=== PATIENT | female | born 1975 | race Caucasian/White ===

== ENCOUNTER 2017-03-22 18:11 | Emergency (ER) | payer MEDICAID ==
[~2017-03-22] VITALS: Wt 122.5 kg
[2017-03-22 18:17] VITALS: BP 129/73
[2017-03-22] MEDS ORDERED: NAPROSYN500 MG PO (19:49)
== END 2017-03-22 20:23 | disposition home or self-care (01) ==
LOC: ED 18:11
DX: G89.29 Other chronic pain (principal); M25.561 Pain in right knee; F17.200 Nicotine dependence, unspecified, uncomplicated

== ENCOUNTER → 2017-03-31 | Outpatient (CLI) | payer MEDICAID ==
[~2017-03-31] MED LIST: NAPROSYN500 MG PO
[2017-03-31 13:41] LABS: BASO % 0.3 % (0.0-1.0); EOS # 0.4 10*3/uL (0.0-0.4); EOS % 4.1 % (1.0-4.0); HEMATOCRIT 39.8 % (37.0-47.0); HEMOGLOBIN 12.4 g/dl (12.0-16.0); LYMPH # 3.1 10*3/uL (1.3-4.4); LYMPH % 35.8 % (27.0-41.0); MEAN CELL VOLUME 94.5 fl (81.0-99.0); MEAN CORPUSCULAR HGB 29.5 pg (27.0-31.0); MEAN CORPUSCULAR HGB CONC 31.2 g/dl (33.0-37.0); MEAN PLATELET VOLUME 9.8 fl (9.6-12.3); MONO # 0.8 10*3/uL (0.1-1.0); MONO % 9.1 % (3.0-9.0); NEUT # 4.4 10*3/uL (2.3-7.9); NEUT % 50.5 % (47.0-73.0); PLATELET COUNT AUTOMATED 299 10*3/uL (130-400); RED BLOOD COUNT 4.21 10*6/uL (4.10-5.10); RED CELL DISTRI WIDTH 13.6 % (0-14.5); WHITE BLOOD COUNT 8.6 10*3/uL (4.8-10.8)
[2017-03-31 13:58] LABS: ALBUMIN 3.3 gm/dl (3.1-4.5); ALKALINE PHOSPHATASE 107 U/L (45-117); BILIRUBIN, TOTAL 0.3 mg/dl (0.2-1.0); BUN 18 mg/dl (7-24); CARBON DIOXIDE 25 mmol/L (21-32); CHLORIDE 108 mmol/L (98-107); CHOLESTEROL 159 mg/dL (<200); EST GLOM FILT AFRICAN AMERICAN > 60 ml/min; GLUCOSE 81 mg/dL (65-99); HDL CHOLESTEROL 50 mg/dl (40-60); LDL CHOLESTEROL 86 mg/dL (9-159); POTASSIUM 4.1 mmol/L (3.5-5.1); SGOT/AST 15 IU/L (3-35); SGPT/ALT 24 U/L (12-78); SODIUM 144 mmol/L (136-145); TOTAL PROTEIN 7.1 gm/dL (6.4-8.2); TRIGLYCERIDES 117 mg/dl (<150); VLDL CHOLESTEROL 23 mg/dL (6-40)
== END | disposition home or self-care (01) ==
LOC: LAB 12:56
PROVIDERS: Emergency Medicine
DX: I10 Essential (primary) hypertension (principal); E78.5 Hyperlipidemia, unspecified; M54.16 Radiculopathy, lumbar region; M79.661 Pain in right lower leg; M79.662 Pain in left lower leg; R20.0 Anesthesia of skin

== ENCOUNTER 2017-06-29 21:49 | Emergency (ER) | payer OTHER ==
[~2017-06-29] VITALS: Ht 157.4 cm; Wt 133.8 kg
[2017-06-29 21:56] VITALS: BP 181/97
[2017-06-29] MEDS ORDERED: MEDROL DOSEPAK4 MG PO (23:05)
== END 2017-06-29 23:28 | disposition home or self-care (01) ==
LOC: ED 21:49
DX: M25.511 Pain in right shoulder (principal); M54.12 Radiculopathy, cervical region; F17.200 Nicotine dependence, unspecified, uncomplicated; Z98.890 Other specified postprocedural states

== ENCOUNTER 2017-08-16 13:59 | Inpatient (IN) | payer OTHER ==
[~2017-08-16] VITALS: Ht 160 cm; Wt 130.3 kg
--- NOTE | ~2017-08-16 | PR ---
[place], [place] PROGRESS NOTE NAME: CLARIBEL GUIDRY UNIT #: [id number] ROOM: 511 DOCTOR: STEPHEN LAM MD BIRTHDATE: [birth year] DOS: 08/21/2017 SUBJECTIVE: The patient was independently seen and examined in rbug-ad-iyhy encounter today. History was confirmed. Physical examination was performed. All the available labs were reviewed. The assessment and management was personally completed for today's visit. Note done by the medical billing associate was approved. She continued to show significant reduction in respiratory symptoms of cough, wheezing and shortness of breath since last seen with current medical management, comfortably resting at this time on the bed. OBJECTIVE: VITAL SIGNS: Reviewed were noted as normal. Pulse oxygen saturation on room air was 94% saturation. LUNGS: The patient was noted without any crackles. Occasional scattered wheezing was present. ABDOMEN: Soft and obese. EXTREMITIES: Without edema. LABORATORY DATA: BMP of the patient noted essentially normal except mild elevation of glucose. CBC: WBC count 16.6, remaining CBC was normal. The ESR yesterday was noted 49. CRP mildly elevated at 0.45. ASSESSMENT: 1. The patient at this time was noted with patchy ground glass opacity of the lungs related to most likely acute infection versus etiology of ____ including interstitial pneumonia for this patient has been considered at this time. 2. New onset of acute exacerbation of chronic obstructive pulmonary disease/bronchial asthma. PLAN OF TREATMENT: The patient could be considered for home discharge on oral medication at the present time, would be advised about the office followup patient to document the resolution of the current acute respiratory complaints and abnormality, which has been seen radiologically as an outpatient. Abstinence from tobacco use was discussed. Short acting bronchodilators, longer tapering dose of prednisone starting 50 mg daily for 15 days, use of Dulera or such medication would be advised. [place], [place] PROGRESS NOTE NAME: CLARIBEL GUIDRY UNIT #: [id number] ROOM: 511 DOCTOR: STEPHEN LAM MD BIRTHDATE: [birth year] STEPHEN TENA MD CM:PNTRANS [id number] STEPHEN PARADA MD 08/21/17 2334 interface
--- NOTE | ~2017-08-16 | CON ---
[place], [place] REPORT OF CONSULTATION NAME: CLARIBEL GUIDRY UNIT #: [id number] ROOM: 511 DOCTOR: DARINEL PARADA MDSTEPHEN BIRTHDATE: [birth year] DOS: 08/20/2017 PULMONARY CONSULTATION EVALUATION AND MANAGEMENT CONSULTATION REQUESTED BY: Hospitalist services. REASON FOR CONSULTATION: Assessment of ongoing acute respiratory complaints. HISTORY OF PRESENT ILLNESS: This is a 41-year-old white female patient who has been admitted to the hospital under care of the hospitalist services for the patient for the management of ongoing acute respiratory symptom. The patient thought that she does have symptoms of flu-like symptoms previously and was taking sgas-ipj-mstbleq medications at home. The symptoms started for the last few days for this patient. The patient was noted acutely ill for approximately 2 weeks. The patient stated the symptoms were showing initial improvement; later on, noted with progressive worsening. She went to take a bath in upstairs and stated that she passed out in the bathroom. She has been brought to the hospital for further assessment. Shortness of breath has been noted for this patient still present for the patient, but partial improvement occurred since hospitalization. She does have a cough, which is described as moderate at the present time and remains nonproductive. She denies symptoms of hemoptysis with that. The initial sputum expectoration noted ____ the dialysis sputum expectoration, at that time the patient became acutely ill. She denies any symptoms of chest pain, but complained of excessive chest tightness. She does have symptoms of wheezing as well, which is a new onset noted in the past. PAST MEDICAL HISTORY: 1. Denies any diagnosed pulmonary disease. 2. Essential hypertension. 3. Hyperlipidemia. 4. Chronic morbid obesity. 5. Peripheral neuropathy. 6. Nicotine dependence. SOCIAL HISTORY: The patient stated single, 3 children, lives at home. Tobacco use noted. Half a pack of cigarettes per day since teens. FAMILY HISTORY: The patient's mother at the age of 61 due to coronary artery disease. Father has been known with history of coronary artery disease. HOME MEDICATIONS: Listed the use of metoprolol tartrate, lisinopril with hydrochlorothiazide, ibuprofen p.r.n. use, gabapentin 900 mg q.i.d., and Lipitor 40 mg p.o. daily. DRUG ALLERGIES: No known drug allergies. PHYSICAL EXAMINATION: GENERAL: This is a 41-year-old female who has been currently sitting on a bed without any acute distress. Height of 5 feet 3 inches, weight of 287, BMI 50.8 noted. [place], [place] REPORT OF CONSULTATION NAME: CLARIBEL GUIDRY UNIT #: [id number] ROOM: 511 DOCTOR: DARINEL PARADA MD,STEPHEN BIRTHDATE: [birth year] VITAL SIGNS: The patient was noted as normal temperature, respiratory rate 18-20 range, heart rate 71-86, and blood pressure 153/88-140/91. The pulse oxygen saturation on room air 95% saturation. HEENT: Examination shows head was atraumatic. Decreased posterior pharyngeal space, high tongue base, and crowding of soft tissue structures. NECK: Supple. CARDIOVASCULAR: S1, S2 is audible. LUNGS: The patient was noted with moderate decreased breath sounds with moderate expiratory wheezing noted in the lungs diffusely. There were no crackles heard. ABDOMEN: Soft, obese. EXTREMITIES: Shows chronic obesity without any edema, clubbing, or cyanosis. CENTRAL NERVOUS SYSTEM: The patient was noted without any gross focal neurologic deficit. Cranial nerves 2-12 intact. MUSCULOSKELETAL: Showed no deformities. VISIBLE SKIN: The patient was noted without any focal neurologic deficit. LABORATORY DATA: The labs on this patient for this admission, CBC for the patient of 08/16/2017, WBC count was 15,000, remaining CBC was essentially noted as normal. The influenza A and B, nasal washing antigens were negative. The CMP of the patient of 08/16/2017, normal BUN and creatinine and albumin 2.5, otherwise grossly normal. Lactic acid was noted as 1.5 that was normal. The CBC of the patient of 08/17/2017, WBC count 14.1, hemoglobin 11.9, hematocrit 37.0, and platelet count of 422,000. CMP of the patient repeated glucose 184. The patient was noted normal BMP and electrolytes of the patient on the 08/17/2017. The blood culture on 08/16/2017, no bacterial growth. Creatinine today were noted normal. CBC of the patient of 08/18/2017, WBC count 14.7. Echocardiogram of 08/19/2017 for the patient was reported by Dr. Sarabia for the patient's assessment with the impression of normal left ventricle wall thickness of the patient without any other abnormalities including the valve and other areas examined. Review of the radiology data, chest x-ray, PA lateral for the patient that was done on 08/16/2017 does not show any acute abnormalities. CT scan of the chest of 08/16/2017 for this patient was noted, does show evidence of several areas of the patient's ground glass opacity. The patient with some nodular formation involving the lung for this patient bilaterally with perivascular bundle. The involvement was noted diffusely in the lungs with only partial sparing and certain part of the lungs. The review of the mediastinal structure for this patient was also done for this patient that shows no significant lymphadenopathy of the patient, was visible in the mediastinum. Mediastinal fat was noted as normal findings for the patient for her current body habitus. IMPRESSION: The patient who has been admitted to the hospital noted with bilateral ground glass opacities noted in the lungs bilaterally without any lymphadenopathy noted, syncopal episode after flu-like symptom. The differential diagnosis of current CT scan would be considered with possibility of atypical infection including viral in origin as well. Certainly beyond that the connective tissue disorder of the patient would be considered in the differential diagnosis and current problem. These findings does not seem to be [place], [place] REPORT OF CONSULTATION NAME: CLARIBEL GUIDRY UNIT #: [id number] ROOM: [employer] DOCTOR: WILLY LAM MDM BIRTHDATE: [birth year] consistent with evidence of acute hypersensitivity pneumonitis or cryptogenic organizing pneumonia on the CT scan assessment. PLAN OF MANAGEMENT: The patient has been currently getting the intravenous corticosteroids, bronchodilators, and oxygen supplementation for the patient with gradual reduction and improvement in the respiratory symptoms has been noted. Symptoms to be monitored for the patient closely. Obtain the respiratory viral panel for the patient as well. Consider Fiberoptic bronchoscopy of the patient with BAL specimen if the patient's symptom remains persistent. Certainly, followup CT scan of the chest for the patient will be necessary to exclude any other interstitial lung disease for the patient's assessment. Usual workup of the patient for the interstitial lung disease, common testing will be ordered. Other supportive therapy, plan of management of the patient will be continued as in progress as well. Abstinence from tobacco use will be recommended for the patient, continued at the present time. Usual care. Additional treatment changes to be made for this patient based on the progression of the illness. Thanks for allowing me to participate in the care of this patient. STEPHEN TENA MD CM:CONSTR:REPORT OF CONSULTATION 1726 08/21/17 0534 interface
--- NOTE | ~2017-08-16 | PR ---
[place], [place] PROGRESS NOTE NAME: CLARIBEL GUIDRY UNIT #: [id number] ROOM: 511 DOCTOR: ENMA ROBERTS DO BIRTHDATE: [birth year] DOS: 08/21/2017 SUBJECTIVE: The patient was seen and examined at bedside. The patient reports that she feels much improved from when she was admitted. The patient feels like she is ready to be discharged at this time. The patient reports that her shortness of breath, wheezing and cough have all improved since admission. No new symptoms this morning. LABORATORY DATA: White count this morning was 16.6, hemoglobin 12.7, hematocrit 39.4, platelets 474. BMP was normal. Viral pneumonia and antibody workup is still pending along with the immunology workup. Results will be discussed with the patient in a future outpatient visit. OBJECTIVE: VITAL SIGNS: Temperature 98.2, pulse is 78, respirations 20 and pulse ox is 94% on room air. HEENT: The patient is normocephalic, atraumatic. Eyes are clear. No injection, no discharge. Nares are patent. Oral, mucous membranes are moist. NECK: Supple, nontender. CARDIOVASCULAR: S1 and S2 is audible. LUNGS: Moderate decreased breath sounds with moderate expiratory wheezing in the lungs diffusely, however, improved from yesterday. There are no crackles heard. ABDOMEN: Soft, nontender and obese. Positive bowel sounds. EXTREMITIES: Show no edema, clubbing or cyanosis. NEUROLOGIC: Negative for focal deficits. MUSCULOSKELETAL: No deformities. SKIN: Without rashes or erythema. IMPRESSION: 1. Bilateral ground glass opacities in the lungs without lymphadenopathy, likely secondary to viral flu like symptoms versus an exacerbation of emphysema and bronchitis. 2. Concern for connective tissue disorder causing interstitial lung disease. 3. Obesity. 4. Nicotine dependence. TREATMENT PLAN: The patient was clear medically to be discharged. I recommend Ventolin as needed for shortness of breath with Dulera twice a day, Levaquin for 10 days along with a steroid taper and a repeat CT will be needed upon followup with Dr. Tena outpatient. However, it is our opinion that she is medically stable and able to be discharged today with continued treatment at home. ENMA ROBERTS DO [place], [place] PROGRESS NOTE NAME: CLARIBEL GUIDRY UNIT #: [id number] ROOM: 511 DOCTOR: ENMA ROBERTS DO BIRTHDATE: [birth year] STEPHEN TENA MD CM:PNREMIGIO [id number] ENMA ROBERTS DO 08/22/17 0434 interface
[~2017-08-16 13:59] MED LIST changes: +MEDROL DOSEPAK4 MG PO
[2017-08-16 14:14] VITALS: BP 157/87
[2017-08-16] MEDS ORDERED: NEURONTIN300 MG PO (14:15)
[2017-08-16] MEDS ORDERED: LISINOPRIL-HCT1 EACH PO (14:15)
[2017-08-16] MEDS ORDERED: METOPROLOL TAR100 M1 PO (14:15)
[2017-08-16] MEDS ORDERED: GABAPENTIN TAB600 MG PO (14:15)
[2017-08-16] MEDS ORDERED: IBUPROFEN600 MG PO (14:16)
[2017-08-16] MEDS ORDERED: KENALOG 0.1%80 GM T (14:16)
[2017-08-16] MEDS ORDERED: ATORVASTATIN CA40 M1 PO (14:16)
[2017-08-16 14:54] LABS: BASO % 0.2 % (0.0-1.0); EOS # 0.1 10*3/uL (0.0-0.4); EOS % 0.9 % (1.0-4.0); HEMATOCRIT 41.8 % (37.0-47.0); HEMOGLOBIN 13.2 g/dl (12.0-16.0); LYMPH # 2.3 10*3/uL (1.3-4.4); LYMPH % 15.1 % (27.0-41.0); MEAN CELL VOLUME 90.9 fl (81.0-99.0); MEAN CORPUSCULAR HGB 28.7 pg (27.0-31.0); MEAN CORPUSCULAR HGB CONC 31.6 g/dl (33.0-37.0); MEAN PLATELET VOLUME 9.7 fl (9.6-12.3); MONO # 0.9 10*3/uL (0.1-1.0); MONO % 6.3 % (3.0-9.0); NEUT # 11.5 10*3/uL (2.3-7.9); NEUT % 76.2 % (47.0-73.0); PLATELET COUNT AUTOMATED 450 10*3/uL (130-400); RED CELL DISTRI WIDTH 13.2 % (0-14.5)
[2017-08-16 15:11] LABS: ALBUMIN 2.5 gm/dl (3.1-4.5); ALKALINE PHOSPHATASE 132 U/L (45-117); BUN 23 mg/dl (7-24); CHLORIDE 108 mmol/L (98-107); CREATININE 0.87 mg/dL (0.55-1.02); POTASSIUM 3.9 mmol/L (3.5-5.1); SGOT/AST 24 IU/L (3-35); SGPT/ALT 26 U/L (12-78); SODIUM 143 mmol/L (136-145); TOTAL PROTEIN 7.9 gm/dL (6.4-8.2)
[2017-08-16 16:56] VITALS: BP 170/88
[2017-08-16 19:30] VITALS: BP 170/88
[2017-08-16 20:00] VITALS: BP 162/94
[2017-08-17] VITALS: BP 139/74
[2017-08-17 06:07] LABS: BASO % 0.1 % (0.0-1.0); HEMOGLOBIN 11.9 g/dl (12.0-16.0); LYMPH # 1.4 10*3/uL (1.3-4.4); LYMPH % 10.2 % (27.0-41.0); MEAN CELL VOLUME 91.1 fl (81.0-99.0); MEAN CORPUSCULAR HGB 29.3 pg (27.0-31.0); MEAN CORPUSCULAR HGB CONC 32.2 g/dl (33.0-37.0); MONO # 0.3 10*3/uL (0.1-1.0); MONO % 2.1 % (3.0-9.0); NEUT # 12.2 10*3/uL (2.3-7.9); PLATELET COUNT AUTOMATED 422 10*3/uL (130-400); RED BLOOD COUNT 4.06 10*6/uL (4.10-5.10); RED CELL DISTRI WIDTH 13.2 % (0-14.5); WHITE BLOOD COUNT 14.1 10*3/uL (4.8-10.8)
[2017-08-17 06:16] LABS: ALBUMIN 2.1 gm/dl (3.1-4.5); ALKALINE PHOSPHATASE 116 U/L (45-117); BUN 19 mg/dl (7-24); CHLORIDE 107 mmol/L (98-107); CHOLESTEROL 122 mg/dL (<200); CREATININE 0.74 mg/dL (0.55-1.02); HDL CHOLESTEROL 28 mg/dl (40-60); LDL CHOLESTEROL 71 mg/dL (9-159); PHOSPHOROUS 3.3 mg/dL (2.5-4.9); POTASSIUM 3.8 mmol/L (3.5-5.1); SGOT/AST 18 IU/L (3-35); SGPT/ALT 21 U/L (12-78); SODIUM 141 mmol/L (136-145); TRIGLYCERIDES 117 mg/dl (<150); VLDL CHOLESTEROL 23 mg/dL (6-40)
[2017-08-17 06:21] LABS: THYROID STIM HORMONE (HS) 0.198 uIU/ml (0.358-4.75)
[2017-08-17 06:32] LABS: ACT PARTIAL THROMBO TIME 25.2 SECONDS (20.8-31.5)
[2017-08-17 08:00] VITALS: BP 130/82
[2017-08-17 12:00] VITALS: BP 124/80
[2017-08-17 16:00] VITALS: BP 150/85
[2017-08-17 20:00] VITALS: BP 141/84
[2017-08-18] VITALS: BP 162/90; BP 165/96
[2017-08-18 07:14] LABS: HEMOGLOBIN 11.2 g/dl (12.0-16.0); MEAN CELL VOLUME 92.3 fl (81.0-99.0); MEAN CORPUSCULAR HGB 29.6 pg (27.0-31.0); MEAN PLATELET VOLUME 9.6 fl (9.6-12.3); PLATELET COUNT AUTOMATED 390 10*3/uL (130-400); RED BLOOD COUNT 3.79 10*6/uL (4.10-5.10); RED CELL DISTRI WIDTH 13.3 % (0-14.5); WHITE BLOOD COUNT 14.7 10*3/uL (4.8-10.8)
[2017-08-18 07:45] LABS: PLATELET SUFFICIENCY NORMAL (NORMAL); TOTAL CELLS COUNTED 100 #CELLS
[2017-08-18 07:46] LABS: VACUOLATION OF NEUTROPHILS SLIGHT
[2017-08-18 08:00] VITALS: BP 153/91
[2017-08-18 12:00] VITALS: BP 160/98
[2017-08-18 14:04] VITALS: BP 160/88
[2017-08-18 16:00] VITALS: BP 169/86
[2017-08-18 20:00] VITALS: BP 157/90
[2017-08-19] VITALS: BP 157/90
[2017-08-19 08:00] VITALS: BP 170/90
[2017-08-19 12:00] VITALS: BP 148/93
[2017-08-19 16:00] VITALS: BP 131/80; BP 158/72
[2017-08-19 20:00] VITALS: BP 153/88
[2017-08-20] VITALS: BP 141/75
[2017-08-20 07:44] LABS: CREATININE 0.74 mg/dL (0.55-1.02)
[2017-08-20 08:00] VITALS: BP 140/91
[2017-08-20 12:00] VITALS: BP 144/81
[2017-08-20 16:00] VITALS: BP 156/86
[2017-08-20 20:00] VITALS: BP 146/86
[2017-08-21] VITALS: BP 116/73
[2017-08-21 07:05] LABS: IMMUNOGLOBULIN IgE 002170 16 IU/mL (0-100)
[2017-08-21 07:11] LABS: HEMATOCRIT 39.4 % (37.0-47.0); HEMOGLOBIN 12.7 g/dl (12.0-16.0); MEAN CORPUSCULAR HGB 29.3 pg (27.0-31.0); MEAN CORPUSCULAR HGB CONC 32.2 g/dl (33.0-37.0); MEAN PLATELET VOLUME 9.4 fl (9.6-12.3); PLATELET COUNT AUTOMATED 474 10*3/uL (130-400); RED BLOOD COUNT 4.33 10*6/uL (4.10-5.10); RED CELL DISTRI WIDTH 13.4 % (0-14.5); WHITE BLOOD COUNT 16.6 10*3/uL (4.8-10.8)
[2017-08-21 07:35] LABS: BUN 21 mg/dl (7-24); CHLORIDE 102 mmol/L (98-107); POTASSIUM 3.9 mmol/L (3.5-5.1); SODIUM 139 mmol/L (136-145)
[2017-08-21 07:55] LABS: PLATELET SUFFICIENCY HIGH (NORMAL); TOTAL CELLS COUNTED 100 #CELLS
[2017-08-21 08:12] LABS: IMMUNOGLOBULIN M, QNT 66 mg/dL (26-217); RHEUMATOID ARTHRITIS FACTOR <10.0 IU/mL (0.0-13.9)
[2017-08-21] MEDS ORDERED: NICODERM CQ1 EAC2 T (11:47)
[2017-08-21] MEDS ORDERED: DOXYCYCLINE100 M3 PO (11:47)
[2017-08-21] MEDS ORDERED: VITAMIN D-32000 UNI1 PO (11:47)
[2017-08-21] MEDS ORDERED: PREDNISONE10 MG PO (11:47)
[2017-08-21] MEDS ORDERED: AMLODIPINE BESYL5 MG PO (11:48)
[2017-08-21] MEDS ORDERED: DULE1ARO1 INH (13:58)
[2017-08-21] MEDS ORDERED: VENTOLIN 02.5 MG/3 M INH (13:58)
[2017-08-21 15:06] LABS: ALDOLASE 002030 7.3 U/L (3.3-10.3); ANGIOTENSIN-CONVERTING ENZYME 11 U/L (14-82); ATYPICAL PANCA <1:20 titer (Neg:<1:20); CYTOPLASMIC (C-ANCA) <1:20 titer (Neg:<1:20); PERINUCLEAR (P-ANCA) <1:20 titer (Neg:<1:20)
[2017-08-22 00:04] LABS: IGG SUBCLASS 1 458 mg/dL (248-810); IGG SUBCLASS 2 278 mg/dL (130-555); IGG SUBCLASS 3 109 mg/dL (15-102); IGG SUBCLASS 4 7 mg/dL (2-96); IMMUNOGLOBULIN G, QNT 809 mg/dL (700-1600)
[2017-08-24 00:04] LABS: ADENOVIRUS Negative (Negative); INFLUENZA A Negative (Negative); INFLUENZA B Negative (Negative); METAPNEUMOVIRUS Negative (Negative); PARAINFLUENZA 1 Negative (Negative); PARAINFLUENZA 2 Negative (Negative); PARAINFLUENZA 3 Negative (Negative); RHINOVIRUS Positive (Negative); RSV A Negative (Negative); RSV B Negative (Negative)
== END 2017-08-21 12:22 | disposition home or self-care (01) | DRG 871 ==
LOC: ED 13:59 → EDHOLD 16:08 → 5E 16:08
PROVIDERS: Family Medicine; Internal Medicine; Internal Medicine Critical Care Medicine; Physician Assistant; Student in an Organized Health Care Education/Training Program
DX: A41.9 Sepsis, unspecified organism (principal); E43 Unspecified severe protein-calorie malnutrition; J18.1 Lobar pneumonia, unspecified organism; J44.1 Chronic obstructive pulmonary disease with (acute) exacerbation; Z68.43 Body mass index [BMI] 50.0-59.9, adult; D47.3 Essential (hemorrhagic) thrombocythemia; I10 Essential (primary) hypertension; G62.9 Polyneuropathy, unspecified; E66.01 Morbid (severe) obesity due to excess calories; E78.5 Hyperlipidemia, unspecified; Z71.6 Tobacco abuse counseling; Z82.49 Family history of ischemic heart disease and other diseases of the circulatory system; Z72.0 Tobacco use; Z79.899 Other long term (current) drug therapy

== ENCOUNTER 2019-06-17 12:44 | Emergency (ER) | payer OTHER ==
[~2019-06-17] VITALS: Ht 160 cm; Wt 122.5 kg
[~2019-06-17 12:44] MED LIST changes: +AMLODIPINE BESYL5 MG PO; +ATORVASTATIN CA40 M1 PO; +DOXYCYCLINE100 M3 PO; +DULE1ARO1 INH; +GABAPENTIN TAB600 MG PO; +IBUPROFEN600 MG PO; +KENALOG 0.1%80 GM T; +LISINOPRIL-HCT1 EACH PO; +METOPROLOL TAR100 M1 PO; +NEURONTIN300 MG PO; +NICODERM CQ1 EAC2 T; +PREDNISONE10 MG PO; +VENTOLIN 02.5 MG/3 M INH; +VITAMIN D-32000 UNI1 PO
[2019-06-17] MEDS ORDERED: PENICILLIN VK500 MG PO (13:18)
[2019-06-17] MEDS ORDERED: NAPROSYN500 MG PO (13:18)
[2019-06-17 15:33] VITALS: BP 160/80
== END 2019-06-17 15:50 | disposition left against medical advice (07) ==
LOC: ED 12:44
DX: S02.5XXA Fracture of tooth (traumatic), initial encounter for closed fracture (principal); I10 Essential (primary) hypertension; E78.5 Hyperlipidemia, unspecified; F17.200 Nicotine dependence, unspecified, uncomplicated; Z79.899 Other long term (current) drug therapy; Z79.2 Long term (current) use of antibiotics; X58.XXXA Exposure to other specified factors, initial encounter; Y93.89 Activity, other specified; Y92.89 Other specified places as the place of occurrence of the external cause; Y99.8 Other external cause status

== ENCOUNTER 2019-06-30 18:42 | Observation (INO) | payer OTHER ==
[2019-06-30] VITALS (7 sets, daily range): BP systolic 140–178; BP diastolic 77–104
[~2019-06-30] VITALS: Ht 160 cm; Wt 123.0 kg
--- NOTE | ~2019-06-30 | EKG ---
[place], [place] ELECTROCARDIOGRAM REPORT NAME: CLARIBEL GUIDRY UNIT #: [id number] ROOM: 502 DOCTOR: DECLAN DRAFT REPORT BIRTHDATE: [birth year] [facility] Test Date: 2019-07-01 Test Time: 01:42:45 Pat Name: CLARIBEL GUIDRY Department: Room: [facility] Gender: F Machine I Coremaker: Amol Gusman : 1975 Requested By: VIRGINIA OLIVERA Order Number: [id number] Reading MD: Asmita Evans MD Measurements Intervals [place] Rate: 79 P: 55 WV: 168 QRS: 43 QRSD: 90 T: 45 QT: 402 QTc: 461 Interpretive Statements Sinus rhythm Electronically Signed On 07-02-2019 14:33:26 PST by Asmita Evans MD CM:EKGRPT:ELECTROCARDIOGRAM REPORT [id number] 1433 VIRGINIA FAYE DRAFT REPORT VIRGINIA OLIVERA DO
--- NOTE | ~2019-06-30 | EKG ---
[place], [place] ELECTROCARDIOGRAM REPORT NAME: CLARIBEL GUIDRY UNIT #: [id number] ROOM: 502 DOCTOR: DECLAN DRAFT REPORT BIRTHDATE: [birth year] [facility] Test Date: 2019-06-30 Test Time: 23:04:15 Pat Name: CLARIBEL GUIDRY Department: Room: [facility] Gender: F Steel Welder: Amol Gusman : 1975 Requested By: VIRGINIA OLIVERA Order Number: [id number] Reading MD: Asmita Evans MD Measurements Intervals [place] Rate: 71 P: 40 MA: 171 QRS: 16 QRSD: 90 T: 35 QT: 424 QTc: 461 Interpretive Statements Sinus rhythm LVH by voltage Baseline wander in lead(s) V3 Electronically Signed On 07-02-2019 14:33:22 PST by Asmita Evans MD CM:EKGRPT:ELECTROCARDIOGRAM REPORT 1433 VIRGINIA FAYE DRAFT REPORT VIRGINIA OLIVERA DO
--- NOTE | ~2019-06-30 | EKG ---
[place], [place] ELECTROCARDIOGRAM REPORT NAME: CLARIBEL GUIDRY UNIT #: [id number] ROOM: 502 DOCTOR: DECLAN DRAFT REPORT BIRTHDATE: [birth year] [facility] Test Date: 2019-06-30 Test Time: 19:23:26 Pat Name: CLARIBEL GUIDRY Department: Room: [facility] Gender: F Sole Rounding Machine Operator: : 1975 Requested By: VIRGINIA OLIVERA Order Number: [id number] Reading MD: Asmita Evans MD Measurements Intervals [place] Rate: 69 P: 42 DC: 159 QRS: 20 QRSD: 88 T: 40 QT: 403 QTc: 432 Interpretive Statements Sinus rhythm No previous ECG available for comparison Electronically Signed On 07-02-2019 14:29:05 PST by Asmita Evans MD CM:EKGRPT:ELECTROCARDIOGRAM REPORT [id number] VIRGINIA FAYE DRAFT REPORT VIRGINIA OLIVERA DO
[~2019-06-30 18:42] MED LIST changes: +PENICILLIN VK500 MG PO
--- NOTE | 2019-06-30 19:44 | NUR ---
Pt given double breathing tx. Pt takes txs at home. No comps. Pt remains on room air at 98%.
[2019-06-30 19:45] LABS: BASO % 0.3 % (0.0-1.0); EOS # 0.4 10*3/uL (0.0-0.4); EOS % 3.7 % (1.0-4.0); HEMATOCRIT 46.8 % (37.0-47.0); HEMOGLOBIN 14.1 g/dl (12.0-16.0); LYMPH # 4.1 10*3/uL (1.3-4.4); LYMPH % 41.6 % (27.0-41.0); MEAN CELL VOLUME 91.8 fl (81.0-99.0); MEAN CORPUSCULAR HGB 27.6 pg (27.0-31.0); MEAN CORPUSCULAR HGB CONC 30.1 g/dl (33.0-37.0); MEAN PLATELET VOLUME 9.7 fl (9.6-12.3); MONO # 0.8 10*3/uL (0.1-1.0); MONO % 8.2 % (3.0-9.0); NEUT # 4.5 10*3/uL (2.3-7.9); NEUT % 45.8 % (47.0-73.0); PLATELET COUNT AUTOMATED 357 10*3/uL (130-400); RED CELL DISTRI WIDTH 14.3 % (0-14.5); WHITE BLOOD COUNT 9.8 10*3/uL (4.8-10.8)
[2019-06-30 19:57] LABS: ACT PARTIAL THROMBO TIME 26.9 SECONDS (20.0-32.1); INTERNATIONAL NORM RATIO 0.9 (2.0-3.5)
[2019-06-30 20:02] LABS: ALBUMIN 3.1 gm/dl (3.1-4.5); ALKALINE PHOSPHATASE 113 U/L (45-117); BUN 11 mg/dl (7-24); CHLORIDE 108 mmol/L (98-107); CREATININE 0.83 mg/dL (0.55-1.02); POTASSIUM 3.8 mmol/L (3.5-5.1); SGOT/AST 12 IU/L (3-35); SGPT/ALT 15 U/L (12-78); SODIUM 139 mmol/L (136-145); TOTAL PROTEIN 7.1 gm/dL (6.4-8.2)
[2019-06-30 20:07] LABS: TROPONIN I < 0.015 ng/ml (<0.045)
--- NOTE | 2019-06-30 20:53 | NUR ---
PATIENT BP WAS 142/82. PER DR OLIVERA TO HOLD THE LOPRESSOR AT THIS TIME AND CONT TO MONITOR BP. NO LOPRESSOR WAS GIVEN TO PATIENT AT THIS TIME.
--- NOTE | 2019-06-30 21:40 | NUR ---
A 43, admitted to 5E, under the services of JUNE Neil DO with a diagnosis of CHEST PAIN. Chief complaint is COUGH, CONGESTION. Patient arrived via bed from [place]. Monitor applied. Initial assessment completed. Vital signs taken and recorded. JUNE NEIL DO notified of admission to the unit. Orders received. See assessment for past medical history, medications and allergies. Patient and/or family oriented to unit. [address] visitation policy reviewed. Clothing/patient valuable form completed. DAYA ARMAS
[2019-07-01] VITALS: BP 152/71
--- NOTE | 2019-07-01 03:25 | NUR ---
Patient resting quietly with no c/o discomfort. Respirations easy and regular. Vital signs stable. No overt distress. YASMIN CARRION
[2019-07-01 06:35] LABS: BASO % 0.3 % (0.0-1.0); EOS % 0.2 % (1.0-4.0); HEMATOCRIT 45.5 % (37.0-47.0); HEMOGLOBIN 13.8 g/dl (12.0-16.0); LYMPH % 11.5 % (27.0-41.0); MEAN CELL VOLUME 92.3 fl (81.0-99.0); MEAN CORPUSCULAR HGB CONC 30.3 g/dl (33.0-37.0); MEAN PLATELET VOLUME 10.1 fl (9.6-12.3); MONO # 0.1 10*3/uL (0.1-1.0); MONO % 0.8 % (3.0-9.0); NEUT # 7.5 10*3/uL (2.3-7.9); NEUT % 86.9 % (47.0-73.0); PLATELET COUNT AUTOMATED 315 10*3/uL (130-400); RED BLOOD COUNT 4.93 10*6/uL (4.10-5.10); RED CELL DISTRI WIDTH 14.2 % (0-14.5); WHITE BLOOD COUNT 8.7 10*3/uL (4.8-10.8)
[2019-07-01 06:40] LABS: ALBUMIN 2.9 gm/dl (3.1-4.5); BUN 13 mg/dl (7-24); CHLORIDE 110 mmol/L (98-107); CHOLESTEROL 206 mg/dL (<200); PHOSPHOROUS 2.3 mg/dL (2.5-4.9); POTASSIUM 4.1 mmol/L (3.5-5.1); SGOT/AST 12 IU/L (3-35); SGPT/ALT 16 U/L (12-78); SODIUM 137 mmol/L (136-145); TRIGLYCERIDES 83 mg/dl (<150); VLDL CHOLESTEROL 17 mg/dL (6-40)
[2019-07-01 06:41] LABS: ALKALINE PHOSPHATASE 108 U/L (45-117); HDL CHOLESTEROL 43 mg/dl (40-60); LDL CHOLESTEROL 146 mg/dL (9-159); TOTAL PROTEIN 6.8 gm/dL (6.4-8.2)
[2019-07-01 06:44] LABS: THYROID STIM HORMONE (HS) 0.619 uIU/ml (0.358-4.75)
[2019-07-01 07:02] LABS: INTERNATIONAL NORM RATIO 0.9 (2.0-3.5)
[2019-07-01 08:00] VITALS: BP 173/88
--- NOTE | 2019-07-01 09:00 | NUR ---
Pharmaceutical Worker in to talk to patient. Patient states lives at home with sister. There are few steps in the home. Physician: bety ivory Pharmacy: [facility] Home health services: none Patient's level of ADLs: INDEPENDENT Patient has working utilities: all working DME: none Follow-up physician's appointment after d/c: will be made by hospistalist nurse director upon discharge Does patient want to access PORTAL?: no Discharge plan discussed with patient, she lives at home with her sister, states she is independent in adls and ambulation, she states she will return home when medically stable and denies any home needs. GERTRUDIS PINO
[2019-07-01 09:20] VITALS: BP 152/82
[2019-07-01] MEDS ORDERED: ZESTORETIC 20-1 EAC1 PO (09:31)
[2019-07-01] MEDS ORDERED: PREDNISONE10 MG PO (09:32)
[2019-07-01 12:00] VITALS: BP 154/75
--- NOTE | 2019-07-01 12:55 | NUR ---
Discharge instructions reviewed with patient/family. Patient receptive and verbalizes understanding. Follow-up care arranged. Written instructions given to patient/family. JORGE LUIS ALEXANDRA
[2019-07-01 14:09] LABS: VITAMIN D, 25-HYDROXY 16.1 ng/mL (30-100)
== END 2019-07-01 12:55 | disposition home or self-care (01) ==
LOC: ED 18:42 → 5E 20:55 → EDHOLD 20:55 → 5E 21:14
PROVIDERS: Emergency Medicine; Student in an Organized Health Care Education/Training Program; ADMIT Family Medicine
DX: R07.89 Other chest pain (principal); I10 Essential (primary) hypertension; E78.5 Hyperlipidemia, unspecified; E44.0 Moderate protein-calorie malnutrition; E87.8 Other disorders of electrolyte and fluid balance, not elsewhere classified; J44.9 Chronic obstructive pulmonary disease, unspecified; F17.210 Nicotine dependence, cigarettes, uncomplicated; E66.01 Morbid (severe) obesity due to excess calories; I16.1 Hypertensive emergency

== ENCOUNTER 2019-08-06 14:04 | Emergency (ER) | payer OTHER ==
[~2019-08-06] VITALS: Ht 160 cm; Wt 130.2 kg
[~2019-08-06 14:04] MED LIST changes: +ZESTORETIC 20-1 EAC1 PO
[2019-08-06 14:08] VITALS: BP 161/92
[2019-08-06 15:52] LABS: BASO % 0.2 % (0.0-1.0); EOS # 0.2 10*3/uL (0.0-0.4); HEMATOCRIT 40.6 % (37.0-47.0); LYMPH # 2.1 10*3/uL (1.3-4.4); LYMPH % 18.3 % (27.0-41.0); MEAN CELL VOLUME 92.9 fl (81.0-99.0); MEAN CORPUSCULAR HGB 27.5 pg (27.0-31.0); MEAN CORPUSCULAR HGB CONC 29.6 g/dl (33.0-37.0); MEAN PLATELET VOLUME 9.5 fl (9.6-12.3); NEUT # 8.1 10*3/uL (2.3-7.9); NEUT % 70.1 % (47.0-73.0); PLATELET COUNT AUTOMATED 345 10*3/uL (130-400); RED BLOOD COUNT 4.37 10*6/uL (4.10-5.10); RED CELL DISTRI WIDTH 14.5 % (0-14.5); WHITE BLOOD COUNT 11.6 10*3/uL (4.8-10.8)
[2019-08-06 16:07] LABS: ALBUMIN 2.9 gm/dl (3.1-4.5); ALKALINE PHOSPHATASE 109 U/L (45-117); BUN 8 mg/dl (7-24); CHLORIDE 108 mmol/L (98-107); POTASSIUM 3.9 mmol/L (3.5-5.1); SGOT/AST 18 IU/L (3-35); SGPT/ALT 29 U/L (12-78); SODIUM 140 mmol/L (136-145); TOTAL PROTEIN 6.9 gm/dL (6.4-8.2)
[2019-08-06 16:16] LABS: BILIRUBIN NEGATIVE (NEGATIVE); BLOOD 2+ (NEGATIVE); CLARITY SL CLOUDY (CLEAR); COLOR YELLOW (YELLOW); GLUCOSE NEGATIVE (NEGATIVE); KETONE NEGATIVE (NEGATIVE); LEUKO ESTERASE NEGATIVE (NEGATIVE); NITRITE NEGATIVE (NEGATIVE); PH 7.5 (5.0-9.0)
[2019-08-06 16:39] LABS: EPITHELIAL CELLS 0-2
[2019-08-06] MEDS ORDERED: SEPTDS PO (17:37)
[2019-08-06] MEDS ORDERED: KEFLEX500 M1 PO (17:37)
[2019-08-06] MEDS ORDERED: TRAMADOL HCL50 MG PO ×2 (17:57→18:02)
== END 2019-08-06 17:47 | disposition home or self-care (01) ==
LOC: ED 14:04
PROVIDERS: Nurse Practitioner
DX: L03.311 Cellulitis of abdominal wall (principal); L02.211 Cutaneous abscess of abdominal wall; F17.200 Nicotine dependence, unspecified, uncomplicated; Z79.899 Other long term (current) drug therapy

== ENCOUNTER → 2019-08-20 | Outpatient (CLI) | payer OTHER ==
[~2019-08-20] MED LIST changes: +KEFLEX500 M1 PO; +SEPTDS PO; +TRAMADOL HCL50 MG PO
[2019-08-20 15:47] LABS: BASO # 0.1 10*3/uL (0.0-0.1); BASO % 0.6 % (0.0-1.0); EOS # 0.3 10*3/uL (0.0-0.4); EOS % 3.2 % (1.0-4.0); HEMATOCRIT 43.3 % (37.0-47.0); HEMOGLOBIN 12.6 g/dl (12.0-16.0); LYMPH # 3.4 10*3/uL (1.3-4.4); LYMPH % 39.6 % (27.0-41.0); MEAN CELL VOLUME 92.1 fl (81.0-99.0); MEAN CORPUSCULAR HGB 26.8 pg (27.0-31.0); MEAN CORPUSCULAR HGB CONC 29.1 g/dl (33.0-37.0); MONO # 0.9 10*3/uL (0.1-1.0); MONO % 10.3 % (3.0-9.0); NEUT # 3.9 10*3/uL (2.3-7.9); NEUT % 45.9 % (47.0-73.0); PLATELET COUNT AUTOMATED 409 10*3/uL (130-400); RED CELL DISTRI WIDTH 14.4 % (0-14.5); WHITE BLOOD COUNT 8.5 10*3/uL (4.8-10.8)
[2019-08-20 16:19] LABS: BUN 14 mg/dl (7-24); CHLORIDE 109 mmol/L (98-107); CREATININE 0.85 mg/dL (0.55-1.02); POTASSIUM 3.7 mmol/L (3.5-5.1); SODIUM 139 mmol/L (136-145)
== END | disposition home or self-care (01) ==
LOC: RESCLI 01:32
PROVIDERS: Internal Medicine
DX: Z76.89 Persons encountering health services in other specified circumstances (principal); Z12.39 Encounter for other screening for malignant neoplasm of breast; L03.311 Cellulitis of abdominal wall; I10 Essential (primary) hypertension; G62.9 Polyneuropathy, unspecified; L40.9 Psoriasis, unspecified; R22.2 Localized swelling, mass and lump, trunk; E66.01 Morbid (severe) obesity due to excess calories; L73.2 Hidradenitis suppurativa; J44.9 Chronic obstructive pulmonary disease, unspecified; E78.5 Hyperlipidemia, unspecified; Z72.0 Tobacco use; Z71.6 Tobacco abuse counseling; Z91.09 Other allergy status, other than to drugs and biological substances

== ENCOUNTER 2021-07-08 05:57 | Emergency (ER) | payer OTHER ==
[~2021-07-08] VITALS: Ht 167.6 cm; Wt 108.9 kg
[2021-07-08 06:23] LABS: BASO % 0.2 % (0.0-1.0); EOS # 0.1 10*3/uL (0.0-0.4); EOS % 0.7 % (1.0-4.0); HEMATOCRIT 38.8 % (37.0-47.0); LYMPH % 16.1 % (27.0-41.0); MEAN CELL VOLUME 89.4 fl (81.0-99.0); MEAN CORPUSCULAR HGB 29.7 pg (27.0-31.0); MEAN CORPUSCULAR HGB CONC 33.2 g/dl (33.0-37.0); MEAN PLATELET VOLUME 8.9 fl (9.6-12.3); MONO % 7.7 % (3.0-9.0); NEUT # 9.2 10*3/uL (2.3-7.9); NEUT % 74.9 % (47.0-73.0); PLATELET COUNT AUTOMATED 310 10*3/uL (130-400); RED BLOOD COUNT 4.34 10*6/uL (4.10-5.10); RED CELL DISTRI WIDTH 13.2 % (0-14.5); WHITE BLOOD COUNT 12.3 10*3/uL (4.8-10.8)
[2021-07-08 06:42] LABS: ALBUMIN 3.1 gm/dl (3.1-4.5); ALKALINE PHOSPHATASE 112 U/L (45-117); BUN 15 mg/dl (7-24); CHLORIDE 106 mmol/L (98-107); CPK 95 U/L (26-192); CREATININE 0.78 mg/dL (0.55-1.02); POTASSIUM 3.2 mmol/L (3.5-5.1); SGOT/AST 13 IU/L (3-35); SGPT/ALT 18 U/L (12-78); SODIUM 134 mmol/L (136-145); TOTAL PROTEIN 7.2 gm/dL (6.4-8.2)
[2021-07-08 10:02] VITALS: BP 128/70
[2021-07-08 12:38] LABS: BILIRUBIN Negative (Negative); BLOOD 2+ (Negative); CLARITY Cloudy (Clear); COLOR Yellow (Yellow); GLUCOSE Negative (Negative); KETONE Trace (Negative); LEUKO ESTERASE Negative (Negative); NITRITE Negative (Negative); PH 6.5 (4.5-8.0)
[2021-07-08 12:46] LABS: URINE AMPHETAMINES > 1000 (1000ng/ml); URINE BARBITURATES < 200 (200ng/ml); URINE BENZODIAZEPINES < 200 (200ng/ml); URINE CANNABINOIDS (THC) > 50 (50ng/ml); URINE COCAINE < 300 (300ng/ml); URINE METHADONE > 300 (300ng/ml); URINE OPIATES < 300 (300ng/ml)
[2021-07-08 12:49] LABS: URINE PHENCYCLIDINE < 25 (25ng/ml)
[2021-07-08 12:54] LABS: BACTERIA TRACE; EPITHELIAL CELLS 16-20
== END 2021-07-08 15:02 | disposition home or self-care (01) ==
LOC: ED 05:57
PROVIDERS: Emergency Medicine; Internal Medicine
DX: R25.2 Cramp and spasm (principal); F15.90 Other stimulant use, unspecified, uncomplicated; Z20.822 Contact with and (suspected) exposure to COVID-19

== ENCOUNTER 2022-07-28 16:15 | Emergency (ER) | payer OTHER ==
[~2022-07-28] VITALS: Ht 162.5 cm; Wt 113.4 kg
[2022-07-28 16:23] VITALS: BP 182/84
== END 2022-07-28 17:41 | disposition home or self-care (01) ==
LOC: ED 16:15
DX: F11.23 Opioid dependence with withdrawal (principal); F17.200 Nicotine dependence, unspecified, uncomplicated